=== PATIENT | female | born 1995 | race Caucasian/White ===

== ENCOUNTER 2017-12-18 10:21 | Emergency (ER) | payer BC ==
[2017-12-18 10:32] VITALS: BP 121/73
--- NOTE | 2017-12-18 11:13 | UC ---
Sundar Mancia Julia, scribed for Mercedes Huggins MD on 12/18/17 at 1051 . Complaint Female HPI - HPI Summary HPI Summary: A 22 year old F presents to [facility] accompanied by her mother with a chief complaint of burning with urination for the past two days. Denies frequency and urgency, vaginal discharge, back pain, nausea, vomiting, fever, chills. No concern for STD. Denies possibly of . Took Azo two nights ago with mild relief, but has not taken any since. Reports similar symptoms last month just prior to menstrual period. Reports bladder infection in May 2017, which improved with antibiotics. Allergies and Medications reviewed. Only taking oral contraceptives, which were recently changed roughly 5 months ago. - History Of Current Complaint Chief Complaint: UCGU Stated Complaint: URINARY ISSUE Time Seen by Provider: 12/18/17 10:38 Hx Obtained From: Patient Hx Last Menstrual Period: 1 month ago Onset/Duration: Lasting Days Timing: Intermittent - with urination Pain Intensity: 0 Aggravating Factor(s): Urination Alleviating Factor(s): Other - azithromycin Associated Signs And Symptoms: Negative: Back Pain - Allergies/Home Medications Allergies/Adverse Reactions: Allergies Allergy/AdvReac Type Severity Reaction Status Date / Time No Known Allergies Allergy Verified 12/18/17 10:28 PMH/Surg Hx/FS Hx/Imm Hx Previously Healthy: Yes - Surgical History Surgical History: None - Family History Known Family History: Negative: Cardiac Disease, Hypertension, Diabetes - Social History Occupation: Employed Full-time - emergency department tech Lives: With Family Alcohol Use: Weekly Substance Use Type: None Smoking Status (MU): Never Smoked Tobacco Have You Smoked in the Last Year: No - Immunization History Most Recent Influenza Vaccination: 08/15/2013 Review of Systems Constitutional: Negative Skin: Negative Gastrointestinal: Negative Genitourinary: Negative - frequency or urgency, Dysuria Musculoskeletal: Negative - back pain All Other Systems Reviewed And Are Negative: Yes Physical Exam - Summary Physical Exam Summary: Vital Signs Reviewed: Yes A+Ox3, no distress Eyes: Conjunctiva Clear, CLARA, EOMintact and fulld ENT: Hearing grossly normal TMX 2 clear mmoist no exudate no erythema neck: supple Respiratory: Positive: No respiratory distress, No accessory muscle use CTA throughout no w/r Cardiovascular: skin color reflect adequate perfusion RRR nl s1 s2 abd: soft +BS no guarding, no rebound no CVA b/ Musculoskeletal Exam: DOWNEY x 4 without difficulty Neurological: Positive: Alert, ambulatory without difficulty Psychological: Positive: Normal Response To Family Skin: Positive: no rash, no ecchymosis Triage Information Reviewed: Yes Vital Signs: Initial Vital Signs Temp 98.7 F 12/18/17 10:29 Pulse 76 12/18/17 10:29 Resp 16 12/18/17 10:29 BP 121/73 12/18/17 10:29 Pulse Ox 100 12/18/17 10:29 Complaint Female Dx - Course Course Of Treatment: Pt with urinary, frequency x 2 days. PT denies vaginal discharge, odor. No concern for . Patient scheduled to start her period today or tomorrow. Patient states she had UTI like symptoms last month as prior to her period as well. Patient without any new or different medications. Patient's urine today with positive blood as well as leuk trase. Will start on Keflex. Will send urine culture. Hydrate. Motrin Tylenol. Return precautions. Discussed with patient have recurrent UTI symptoms may be related to hormonal changes. Recommend follow-up with THERAPIST RADIATION. Patient comfortable in agreement with plan. - Differential Dx/Diagnosis Provider Diagnoses: dysuria Discharge - Sign-Out/Discharge Documenting (check all that apply): Discharge/Admit/Transfer - Discharge Plan Condition: Stable Disposition: ADMITTED TO [facility] Prescriptions: Cephalexin CAP* [Keflex 500 CAP*] 500 mg PO BID #14 cap Patient Education Materials: Urinary Tract Infection in Women (ED) Referrals: Elsy Cadena NP [Primary Care Provider] - Additional Instructions: - stay well hydrated - drink plenty of non-alcoholic, non caffinated beverages - your urine will be further tested - if you require any changes to your treatment, we will contact you - this usually take 2 days - Contact your primary doctor to arrange a follow-up appointment next week. Contact your doctor or return with questions or concerns - Take your antibiotics exactly as prescribed until gone - Okay to take pyridium (urostat) as prescribed for discomfort. This will make your urine blaze orange - this is normal - Okay to alternate ibuprofen (Advil, Motrin) and Tylenol every 3 hours for pain. Take with food - Call your doctor or return with questions or concerns. - Billing Disposition and Condition Condition: STABLE Disposition: Admitted to [facility] The documentation as recorded by the Sundar darling Julia accurately reflects the service I personally performed and the decisions made by , Mercedes Huggins MD.
--- NOTE | 2017-12-19 19:22 | UC ---
- Progress Note Progress Note: urine + staph Saprophyticus Please call patient for symptom update. It improving, continue with cephalexin. If not improving, will call in different abx dawna 12/19/2017 Discharge - Sign-Out/Discharge Documenting (check all that apply): Post-Discharge Follow Up - Discharge Plan Condition: Stable Disposition: ADMITTED TO [facility] Prescriptions: Cephalexin CAP* [Keflex 500 CAP*] 500 mg PO BID #14 cap Patient Education Materials: Urinary Tract Infection in Women (ED) Referrals: Elsy Cadena NP [Primary Care Provider] - Additional Instructions: - stay well hydrated - drink plenty of non-alcoholic, non caffinated beverages - your urine will be further tested - if you require any changes to your treatment, we will contact you - this usually take 2 days - Contact your primary doctor to arrange a follow-up appointment next week. Contact your doctor or return with questions or concerns - Take your antibiotics exactly as prescribed until gone - Okay to take pyridium (urostat) as prescribed for discomfort. This will make your urine blaze orange - this is normal - Okay to alternate ibuprofen (Advil, Motrin) and Tylenol every 3 hours for pain. Take with food - Call your doctor or return with questions or concerns. - Billing Disposition and Condition Condition: STABLE Disposition: Admitted to [facility]
== END 2017-12-18 11:15 | disposition short-term general hospital (02) ==
LOC: UCEAST 10:21
DX: R30.0 Dysuria (principal)
CPT/HCPCS: 81003; 84702; 87077; 87086; 99212; G0463

== ENCOUNTER 2019-07-25 12:11 | Emergency (ER) | payer BC ==
--- OUTSIDE RECORDS SUMMARY | 2019-07-25 13:04 | XMS REPORT | Continuity of Care Document ---
:1995 External Reference #:[id number] Author Name Elsy Cadena N.P. (transmitted by agent of provider Debbie Greenfield) Address [address], [address] [place] [id number] Care Team Providers Name Role Phone Christina Ortiz MD - Internal Care Team Information Director Asset [phone] Medicine Problems Description No Active Problems Social History Type Date Description Comments Sex Unknown ETOH Use Occasionally consumes wine Tobacco Use Start: Unknown Patient has never smoked Recreational Drug Use Never Used Drugs Smoking Status Reviewed: 06/03/19 Patient has never smoked Exercise Type/Frequency Exercises regularly runs 4-5 times a week Allergies, Adverse Reactions, Alerts Description No Known Drug Allergies Medications Active Medications SIG Qnty Indications Ordering Provider Date Sertraline HCL 1 by mouth every 90tabs F41.1 Elsy Cdaena, 05/29/2019 50mg day N.P. Tablets Pimtrea take 1 tablet by 84tabs Elsy Cadena, 05/12/2019 0.15-0.02/0.01 mouth daily N.P. mg (04/11) Tablets Clonazepam Take 1 to 2 5tabs Ora Christian MD 10/30/2018 0.25mg tablets about 30 Tablets Dispers minutes before event Propranolol HCL take about 30 30tabs F41.0 Elsy Cadena, 10/22/2018 10mg minutes before N.P. Tablets event History Medications Escitalopram Oxalate 1 by mouth 30tabs F41.1 Elsy Cadena, 04/28/2019 - 50mg every day N.P. 05/29/2019 Tablets Immunizations Description No Information Available Vital Signs Date Vital Result Comment 06/03/2019 4:08pm Height 63 inches 5'3" Weight 119.00 lb Heart Rate 83 /min BP Systolic Sitting 123 mmHg BP Diastolic Sitting 73 mmHg Body Temperature 97.6 F O2 % BldC Oximetry 97 % BMI (Body Mass Index) 21.1 kg/m2 04/28/2019 10:33am Heart Rate 59 /min BP Systolic Sitting 115 mmHg BP Diastolic Sitting 78 mmHg Body Temperature 98.2 F O2 % BldC Oximetry 98 % Results Test Acquired Date Facility Test Result H/L Range Note CBC Auto 04/22/2019 [facility] White Blood 5.7 10^3/uL Normal 3.5-10.[address] [place] [address] [phone] Red Blood Count 4.71 10^6/uL Normal 3.70-4.87 Hemoglobin 14.5 g/dL Normal 12.0-16.0 Hematocrit 42 % Normal 35-47 Mean Corpuscular Volume 88 fL Normal 80-97 Mean Corpuscular Hemoglobin 31 pg Normal 27-31 Mean Corpuscular HGB Conc 35 g/dL Normal 31-36 Red Cell Distribution Width 12 % Normal 10-15 Platelet Count 216 10^3/uL Normal 150-450 Mean Platelet Volume 6.6 fL Low 7.4-10.4 Abs Neutrophils 3.0 10^3/uL Normal 1.5-7.7 Abs Lymphocytes 2.2 10^3/uL Normal 1.0-4.8 Abs Monocytes 0.5 10^3/uL Normal 0-0.8 Abs Eosinophils 0.1 10^3/uL Normal 0-0.6 Abs Basophils 0.0 10^3/uL Normal 0-0.2 Abs Nucleated RBC 0.0 10^3/uL Granulocyte % 51.7 % Lymphocyte % 37.9 % Monocyte % 8.3 % Eosinophil % 1.6 % Basophil % 0.5 % Nucleated Red Blood Cells % 0.1 Comp Metabolic 04/22/2019 [facility] Sodium 140 mmol/L Normal 135-[address] [place] [address] [phone] Potassium 3.5 mmol/L Normal 3.5-5.0 Chloride 106 mmol/L Normal 101-111 Co2 Carbon Dioxide 27 mmol/L Normal 22-32 Anion Gap 7 mmol/L Normal 2-11 Glucose 85 mg/dL Normal 70-100 Blood Urea Nitrogen 11 mg/dL Normal 6-24 Creatinine 0.82 mg/dL Normal 0.51-0.95 BUN/Creatinine Ratio 13.4 Normal 8-20 Calcium 9.8 mg/dL Normal 8.6-10.3 Total Protein 6.5 g/dL Normal 6.4-8.9 Albumin 4.6 g/dL Normal 3.2-5.2 Globulin 1.9 g/dL Low 2-4 Albumin/Globulin Ratio 2.4 Normal 1-3 Total Bilirubin 0.50 mg/dL Normal 0.2-1.0 Alkaline Phosphatase 40 U/L Normal 34-104 Alt 14 U/L Normal 7-52 Ast 13 U/L Normal 13-39 Egfr Non- 86.4 >60 Egfr 104.5 >60 1 Laboratory 04/22/2019 [facility] TSH (Thyroid 1.21 Normal 0.34 -5.60 test finding [address] Stim Horm) mcIU/[place] [address] [phone] Vitamin B12 202 pg/mL Normal 180-914 2 Vitamin D Total 25(Oh) 19.0 ng/mL Low 20-50 3 1 Because ethnic data is not always readily available, this report includes an eGFR for both -Americans and non- Americans. The National Kidney Disease Education Program (NKDEP) does not endorse the use of the MDRD equation for patients that are not between the ages of 18 and 70, are , have extremes of body size, muscle mass, or nutritional status, or are non- or non-. According to the National Kidney Foundation, irrespective of diagnosis, the stage of the disease is based on the level of kidney function: Stage Description GFR(mL/min/1.73 m(2)) 1 Kidney damage with normal or decreased GFR 90 2 Kidney damage with mild decrease in GFR 60-89 3 Moderate decrease in GFR 30-59 4 Severe decrease in GFR 15-29 5 Kidney failure <15 (or dialysis) 2 Normal Range 180 to 914 Indeterminate Range 145 to 180 Deficient Range <145 3 Total 25-Hydroxyvitamin D2 and D3 (25-OH-VitD) <10 ng/mL (severe deficiency) 10-19 ng/mL (mild to moderate deficiency) 20-50 ng/mL (optimum levels) 51-80 ng/mL (increased risk of hypercalciuria) >80 ng/mL (toxicity possible) Procedures Description No Information Available Medical Devices Description No Information Available Encounters Type Date Location Provider Dx Diagnosis Office Visit 04/28/2019 [facility] Internal Elsy Cadena, F41.1 Generalized anxiety 10:20a Medicine - Ccmob N.P. disorder Office Visit 04/22/2019 [facility] Internal Elsy Cadena, G31.84 Mild cognitive 1:40p Medicine - Ccmob N.P. impairment, so stated H53.2 Diplopia Assessments Date Code Description Provider 06/03/2019 F41.1 Generalized anxiety disorder Elsy Cadena, N.P. 04/28/2019 F41.1 Generalized anxiety disorder Elsy Cadena, N.P. 04/22/2019 G31.84 Mild cognitive impairment, so stated Elsy Cadena, N.P. 04/22/2019 H53.2 Diplopia Elsy Cadena, N.P. Plan of Treatment 06/03/2019 - Elsy Cadena, N.P.F41.1 Generalized anxiety disorderComments:For your anxiety I have switched you from Escitalopram to Sertraline. This may take a few weeks before it becomes therapeutic. If you do not continue to feel better , please contact the office. Functional Status Description No Information Available Mental Status Description No Information Available Referrals Description No Information Available
[2019-07-25 13:07] VITALS: BP 133/85
[2019-07-25 13:33] LABS: Influenza A Molecular Negative (Negative); Influenza B Molecular Negative (Negative)
--- NOTE | 2019-07-25 13:43 | UC ---
Throat Pain/Nasal Wilson HPI - HPI Summary HPI Summary: 23 y/o female presents to the urgent care c/o dry cough, body aches, fever, sore throat, sinus congestion and clear nasal discharge since yesterday. Last night she has a fever of 101.5F. She has taken Tylenol sinus cold and flu to alleviate symptoms. Pt states is drinking fluids, but has decrease appetite and fatigue. Pt denies recent travel outside the country, SOB, wheezing, abdominal pain, N/V/D, rash or neck pain. - History of Current Complaint Chief Complaint: UCGeneralIllness Stated Complaint: THROAT PAIN Time Seen by Provider: 07/25/19 13:18 Hx Obtained From: Patient Hx Last Menstrual Period: 3 weeks ago ?: No Onset/Duration: Gradual Onset, Lasting Days - 1 day, Still Present, Worse Since - this morning Severity: Mild Pain Intensity: 4 Pain Scale Used: 0-10 Numeric Cough: Nonproductive Associated Signs & Symptoms: Positive: Nasal Discharge - clear, Fever. Negative : Dysphagia, Wheezing, Sinus Discomfort, Vomiting, Rash - Epiglottits Risk Factors Epiglottis Risk Factors: Negative - Allergies/Home Medications Allergies/Adverse Reactions: Allergies Allergy/AdvReac Type Severity Reaction Status Date / Time No Known Allergies Allergy Verified 07/25/19 13:07 Home Medications: Home Medications Sertraline* [Zoloft*] 25 mg PO DAILY 07/25/19 [History Confirmed 07/25/19] PMH/Surg Hx/FS Hx/Imm Hx Previously Healthy: Yes - Pt denies PMHX - Surgical History Surgical History: None - Family History Known Family History: Positive: None - Pt denies FMHX Negative: Cardiac Disease, Hypertension, Diabetes - Social History Occupation: Employed Full-time Lives: With Family Alcohol Use: Weekly Substance Use Type: None Smoking Status (MU): Never Smoked Tobacco Have You Smoked in the Last Year: No - Immunization History Most Recent Influenza Vaccination: 08/15/2013 Review of Systems All Other Systems Reviewed And Are Negative: Yes Constitutional: Positive: Fever, Chills, Fatigue, Other - body ahces Skin: Positive: Negative Eyes: Positive: Negative ENT: Positive: Sore Throat, Nasal Discharge - clear, Sinus Congestion Respiratory: Positive: Cough - dry Cardiovascular: Positive: Negative Gastrointestinal: Positive: Negative Genitourinary: Positive: Negative Motor: Positive: Negative Neurovascular: Positive: Negative Musculoskeletal: Positive: Myalgia Neurological: Positive: Headache Psychological: Positive: Negative Is Patient Immunocompromised?: No Physical Exam - Summary Physical Exam Summary: VITAL SIGNS: Reviewed. GENERAL: Patient is a well developed and nourished female who is sitting comfortably in the examining table. Patient is not in any acute respiratory distress. HEAD AND FACE: No signs of trauma. No ecchymosis, hematomas or skull depressions. No sinus tenderness. EYES: PERRLA, EOMI x 2, No injected conjunctiva, no nystagmus. No photophobia. EARS: Hearing grossly intact. Ear canals and tympanic membranes are within normal limits. MOUTH: Positive pharynx with mild erythema, no exudates, No B/L tonsillar enlargement , no exudate. Uvula in midline. edematous nasal mucosa w/ clear nasal discharge, clear PND NECK: Supple, trachea is midline, Positive anterior cervical lymphadenopathy, no JVD, no carotid bruit, no c-spine tenderness, neck with full ROM. No meningeal signs, no Kernig's or brudzinskis signs. CHEST: Symmetric, no tenderness at palpation LUNGS: Clear to auscultation bilaterally. No wheezing or crackles. CVS: Regular rate and rhythm, S1 and S2 present, no murmurs or gallops appreciated. ABDOMEN: Soft, non-tender. No signs of distention. No rebound no guarding, and no masses palpated. Bowel sounds are normal. EXTREMITIES: FROM in all major joints, no edema, no cyanosis or clubbing. NEURO: Alert and oriented x 3. No acute neurological deficits. Pt follows commands. SKIN: Dry and warm Triage Information Reviewed: Yes Vital Signs: Initial Vital Signs Temp 98 F 07/25/19 13:04 Pulse 90 07/25/19 13:04 Resp 16 07/25/19 13:04 BP 133/85 07/25/19 13:04 Pulse Ox 98 07/25/19 13:04 Throat Pain/Nasal Course/Dx - Course Course Of Treatment: 23 y/o female presents to the urgent care c/o dry cough, body aches, fever, sore throat, sinus congestion and clear nasal discharge since yesterday. Last night she has a fever of 101.5F. She has taken Tylenol sinus cold and flu to alleviate symptoms. Pt states is drinking fluids, but has decrease appetite and fatigue. Pt denies recent travel outside the country, SOB, wheezing, abdominal pain, N/V/D, rash or neck pain. Hx obtained. Pt is hemodynamically stable, A&OX3 , fviral syndrome on examination. Rapid strep: negative, Rapid influenza A&B: negative. Pt advise to take ibuprofen PO or Tylenol to alleviates symptoms of pain and swelling. Advised on hand washing to avoid spreading. Pt advised to rest, eat well and avoid strenuous exercise. If symptoms do not improve or worsen advised to return to the urgent care or f/u with her PCP for further evaluation and treatment. Pt understood and agreed w/ plan of care - Differential Dx/Diagnosis Differential Diagnosis/HQI/PQRI: Laryngitis, Mononucleosis, Otitis Media, Pharyngitis, Tonsillitis, URI Provider Diagnosis: Viral syndrome Discharge ED - Sign-Out/Discharge Documenting (check all that apply): Patient Departure - D/c home All imaging exams completed and their final reports reviewed: No Studies - Discharge Plan Condition: Stable Disposition: HOME Patient Education Materials: Viral Syndrome (ED) Referrals: Elsy Cadena PLATE GRINDER [Primary Care Provider] - 3 Days Additional Instructions: 1-Please continue taking Tylenol PO q6-8hrs prn or alternate w/ Ibuprofen PO as instructed after meals to alleviate fever, and sore throat. Increase fluid intake, eat well, rest and avoid strenuous exercise 2-If symptoms do not improve or worsen please return to the urgent care or f/u with your PCP in 2 days for further evaluation and treatment. 3- Rapid strep: negative, Rapid influenza A&B: negative - Billing Disposition and Condition Condition: STABLE Disposition: Home
== END 2019-07-25 14:14 | disposition home or self-care (01) ==
LOC: UCEAST 12:11
DX: B34.9 Viral infection, unspecified (principal); R05 Cough; J02.9 Acute pharyngitis, unspecified; R53.83 Other fatigue; J34.89 Other specified disorders of nose and nasal sinuses; M79.10 Myalgia, unspecified site; R51 Headache
CPT/HCPCS: 87651; 99211; G0463